=== PATIENT | female | born 1990 | race Caucasian/White ===

== ENCOUNTER 2020-12-15 08:15 | Emergency (ER) | payer OTHER ==
[~2020-12-15 08:15] MED LIST: COLACE 100MG C100 MG PO; IBUPROFEN600 MG PO; NORCO 5-325 TA1 EACH PO; PRENATABS RX T1 EACH PO; PRENATAL VITAM1 EAC8 PO
[2020-12-15 08:57] LABS: HEMOGLOBIN 14.5 gm/dl (12.3-15.3); RED BLOOD COUNT 4.39 M/UL (4.00-5.10); WHITE BLOOD COUNT 9.9 K/UL (4.5-11.0)
[2020-12-15] MEDS ORDERED: AUGMENTIN 875-1 EACH PO (10:56)
== END 2020-12-15 11:20 | disposition home or self-care (01) ==
LOC: ER1 08:15
PROVIDERS: Physician Assistant
DX: K04.7 Periapical abscess without sinus (principal)
CPT/HCPCS: 70487; 84703; 85025; 96365; 96375; 99283; J0295; J1885; Q9963